=== PATIENT | male | born 1995 | race Caucasian/White ===

== ENCOUNTER 2021-04-01 02:27 | Day surgery (SDC) | payer OTHER, SELFPAY ==
[2021-03-18 13:50] VITALS: BMI 31.6
[2021-04-01 12:03] VITALS: BP 159/93; PULSE 117; RESP 18; TEMP 36.7; O2SAT 100
[2021-04-01 12:20] VITALS: BP 149/87; PULSE 118; RESP 18; TEMP 36.6; O2SAT 99
--- NOTE | 2021-04-01 12:20 | PM.HPGS ---
History of Present Illness History of Present Illness Consent: Risks, benefits, and alternatives have been discussed and questions answered. Patient agrees to proceed with procedure. Chief complaint: internal hemorrhoids Narrative: Jonh Vidal is a 25 year old male here to get IRC because hemorrhoids Review of Systems Constitutional: Constitutional: Denies headache(s) and Denies weakness Eyes: Eyes: Denies blurry vision ENT: Reports Normal hearing present, Denies headache(s) and Denies neck pain Cardiovascular: Cardiovascular: Denies chest pain and Denies dyspnea Respiratory: Respiratory: Denies dyspnea Gastrointestinal: Gastrointestinal: Reports no additional gastrointestinal complaints Genitourinary: Genitourinary: Denies dysuria Musculoskeletal: Musculoskeletal: Denies neck pain Integumentary/Breasts: Skin/Breast: Denies dry skin Neurologic: Reports Normal hearing present, Denies headache(s) and Denies weakness Psychiatric: Psychiatric: Denies anxiety Endocrine: Endocrine: Denies change in body appearance Hematologic/Lymphatic: Hematologic/Lymphatic: Denies easy bleeding Allergic/Immunologic: Allergic/Immunologic: Denies urticaria PMFSH Past Medical History Medical History (Updated 02/21/21 @ 13:41 by Asaf Richey MD) ADD (attention deficit disorder) Generalized anxiety disorder Nicotine dependence Rectal bleeding Syphilis in male Social History Social History (Updated 02/21/21 @ 13:21 by Sierra Martines CMA) Smoking status: Former smoker Tobacco type: e-cigarettes/vaping Alcohol intake: current Drinks per week: 2 Substance use: never Living arrangements: with family Spiritual care concerns: No Meds Home Medications and Allergies Home Medications Medication Instructions Recorded Confirmed Type bupropion HCl 150 mg 24 hr tablet, 150 mg PO QAM #90 tablet 01/24/21 03/18/21 Rx extended release lisdexamfetamine 60 mg capsule 60 mg PO DAILY #30 cap 03/27/21 Rx Allergies Allergy/AdvReac Type Severity Reaction Status Date / Time amoxicillin [Amoxil] Allergy Unknown hives Verified 04/01/21 12:02 animal dander Allergy Unknown unkown Verified 04/01/21 12:02 grass pollen Allergy Unknown unkown Verified 04/01/21 12:02 house dust mite Allergy Unknown unkown Verified 04/01/21 12:02 mold Allergy Unknown unkown Verified 04/01/21 12:02 Penicillins Allergy Unknown Unknown Verified 04/01/21 12:02 Vital Signs Vital Signs - 24 hr 04/01/21 12:03 Temperature 98.1 F Pulse Rate 117 H Respiratory Rate 18 Blood Pressure 159/93 H Pulse Oximetry 100 Exam Const: General: comfortable and no acute distress HENMT: General nose exam: Normal nares present Eyes: General: appearance normal, both eyes and all related structures Neck: Neck: no JVD Resp: Auscultation: clear to auscultation bilaterally Cardio: Rate: regular rate Rhythm: regular rhythm GI: Inspection: non-distended GI Palp: Yes Soft to palpation Skin: General skin exam: normal color Neuro: General: gait normal Speech: normal speech Extrem: General: normal to inspection Psych: Mental Status: mental status grossly normal Assessment and Plan Assessment and plan (1) Internal hemorrhoids: Code(s): K64.8 - Other hemorrhoids Status: Acute Assessment and Plan: IRC treatment (2) Rectal bleeding: Code(s): K62.5 - Hemorrhage of anus and rectum Status: Acute
--- NOTE | 2021-04-01 12:21 | W.PM.PROC2 ---
Procedure Note - Detailed Date of Procedure 04/01/21 Pre-op Diagnosis internal hemorrhoids Post-op Diagnosis same Procedure Performed IRC (infrared coagulation) Surgeon Asaf Richey MD Anesthesia none Findings grade II internal hemorrhoid Description of Procedure I performed rectal exam, no fissure, no lesions. Then I introduced anoscopy and found grade II internal hemorrhoid at 6 o'clock, then used IRC probe x5 1.5 seconds each time, no complications Complications No immediate complications Condition stable
== END 2021-04-01 12:26 | disposition home or self-care (01) ==
PROVIDERS: PCP Family Medicine; Visit Provider Internal Medicine Gastroenterology
PROC: (CPT 46930; principal; 2021-04-01 12:00)
DX: K64.1 Second degree hemorrhoids (principal); F98.8 Other specified behavioral and emotional disorders with onset usually occurring in childhood and adolescence; F41.1 Generalized anxiety disorder; F17.290 Nicotine dependence, other tobacco product, uncomplicated; K62.5 Hemorrhage of anus and rectum
CPT/HCPCS: 46930

== ENCOUNTER 2021-07-01 00:30 | Day surgery (SDC) | payer OTHER, SELFPAY ==
[2021-06-19 15:56] VITALS: BMI 33.8
[2021-07-01 11:57] VITALS: BP 139/83; PULSE 94; RESP 16; TEMP 36; O2SAT 98; BMI 32.9
--- NOTE | 2021-07-01 12:00 | P.PNAN_ITS ---
Anes - Initial Pre Proc Eval Procedure: Operation Date: 07/01/21 13:30 Proposed Procedures p Colonoscopy - Pro Brock MD Date/Time: 07/01/21 12:00 Surgeon: Pro Brock MD Pre Op Diagnosis: Rectal Bleed Patient Data Age: 25 Gender: M Height: 1.78 m Weight: 104.1 kg Last Vital Signs Temp 36.0 C L 07/01/21 11:57 Pulse 94 07/01/21 11:57 Resp 16 07/01/21 11:57 BP 139/83 07/01/21 11:57 Pulse Ox 98 07/01/21 11:57 Allergies Allergy/AdvReac Type Severity Reaction Status Date / Time amoxicillin [Amoxil] Allergy Unknown hives Verified 07/01/21 11:55 animal dander Allergy Unknown unkown Verified 07/01/21 11:55 grass pollen Allergy Unknown unkown Verified 07/01/21 11:55 house dust mite Allergy Unknown unkown Verified 07/01/21 11:55 mold Allergy Unknown unkown Verified 07/01/21 11:55 Penicillins Allergy Unknown Unknown Verified 07/01/21 11:55 Home Medications Medication Instructions Recorded Confirmed Type bupropion HCl 150 mg 24 hr tablet, 150 mg PO QAM #90 tablet 04/24/21 06/27/21 Rx extended release escitalopram oxalate 10 mg tablet 10 mg PO DAILY 06/27/21 06/27/21 History lisdexamfetamine 60 mg capsule 60 mg PO QAM #30 cap 06/27/21 07/01/21 Rx Patient hx anesthesia problems: none Family hx anesthesia problems: none Results Review: All pre-operative results and documents have been reviewed as part of the pre-operative evaluation. [facility] Past Medical History Medical History ADD (attention deficit disorder) Generalized anxiety disorder Nicotine dependence Rectal bleeding Syphilis in male Social History Social History Smoking packs per day: 0.5 Smoking cigarettes per day: 10.0 Years smoked: 4 Smoking pack-years: 2.00 Tobacco type: e-cigarettes/vaping Additional smoking assessment comments: still uses tobacoless dip pouches for the nicotine Alcohol intake: current Drinks per week: 2 Alcohol use details: rare occasional use Substance use: never Substance use type: does not use Spiritual care concerns: No Anes - Eval Final PreProcedure Day of Procedure 07/01/21 12:00 Patient weight: obese Heart: regular rate and rhythm Lungs: clear to auscultation Airway: Mallampati scale class 1 Neurological: alert and oriented Last oral intake: >/= 8 hours ASA classification: III Emergent: no Anesthetic plan: proceed Anesthesia type and monitoring: general GIVS and standard monitoring Results Review: All pre-operative results and documents have been reviewed as part of the pre-operative evaluation. Informed Consent: The patient's anesthetic plan and its attendant risks and benefits were discussed with the patient/family/POA. Questions were solicited and answers provided to the satisfaction of the patient/family/POA.
--- NOTE | 2021-07-01 12:05 | WPDGICN ---
Assessment and Plan Assessment and plan (1) Rectal bleeding: Code(s): K62.5 - Hemorrhage of anus and rectum Status: Acute Assessment and Plan: Patient with rectal bleeding associated with rectal trauma. Will perform colonoscopy to assess more thoroughly. High-fiber diet. Minimizing trauma is strongly encouraged. (2) Proctalgia: Code(s): K62.89 - Other specified diseases of anus and rectum Status: Acute Assessment and Plan: Patient reports pain rectal pain with rectal intercourse. Plan to perform assess more thoroughly with colonoscopy to exclude organic disease. (3) Internal hemorrhoids: Code(s): K64.8 - Other hemorrhoids Status: Acute Assessment and Plan: Patient is reported to have had internal hemorrhoids on previous exam. This will be assessed at time of colonoscopy. High-fiber diet advised. GI Consult Note Consult date/time: 07/01/21 12:05 HPI: Jonh Vidal is a 25 year old male Presents for colonoscopy. Patient's last colonoscopy 5 years ago was perm formed by Dr. Hodge. Patient has recently had some rectal bleeding. He noticed this this with anal sex in with sex toys. More recently is be spin started on fiber supplements and this is minimized. He continues to have pain but only with sexual intercourse. Patient states this does not occur with bowel movements. Or with regular activity. The patient has undergone IR see under the direction of Dr. Paz. He presents today for colonoscopy to further assess his pain and bleeding. Review of Systems Review of Systems: All systems reviewed & are unremarkable except as noted in HPI and below PMFSH Past Medical History Medical History ADD (attention deficit disorder) Generalized anxiety disorder Nicotine dependence Rectal bleeding Syphilis in male Social History Social History Smoking packs per day: 0.5 Smoking cigarettes per day: 10.0 Years smoked: 4 Smoking pack-years: 2.00 Tobacco type: e-cigarettes/vaping Additional smoking assessment comments: still uses tobacoless dip pouches for the nicotine Alcohol intake: current Drinks per week: 2 Alcohol use details: rare occasional use Substance use: never Substance use type: does not use Spiritual care concerns: No Meds Home Medications and Allergies Home Medications Medication Instructions Recorded Confirmed Type bupropion HCl 150 mg 24 hr tablet, 150 mg PO QAM #90 tablet 04/24/21 06/27/21 Rx extended release escitalopram oxalate 10 mg tablet 10 mg PO DAILY 06/27/21 06/27/21 History lisdexamfetamine 60 mg capsule 60 mg PO QAM #30 cap 06/27/21 07/01/21 Rx Allergies Allergy/AdvReac Type Severity Reaction Status Date / Time amoxicillin [Amoxil] Allergy Unknown hives Verified 07/01/21 11:55 animal dander Allergy Unknown unkown Verified 07/01/21 11:55 grass pollen Allergy Unknown unkown Verified 07/01/21 11:55 house dust mite Allergy Unknown unkown Verified 07/01/21 11:55 mold Allergy Unknown unkown Verified 07/01/21 11:55 Penicillins Allergy Unknown Unknown Verified 07/01/21 11:55 Vital Signs Vital Signs - 24 hr 07/01/21 11:57 Temperature 96.8 F L Pulse Rate 94 Respiratory Rate 16 Blood Pressure 139/83 Pulse Oximetry 98 Exam Narrative: Physical exam reveals patient be alert. Vital signs stable. HEENT exam unremarkable. Patient anicteric. Lungs are clear. Heart without murmur. Abdomen bowel sounds present soft nontender with no hepatosplenomegaly. . Digital external rectal exam normal.
[2021-07-01] MEDS: LACTATED RINGERS 1,000 ML 150 ML IV CONT (12:09)
[2021-07-01 12:29] VITALS: BP 110/66; PULSE 76; RESP 18; O2SAT 100
[2021-07-01 12:39] VITALS: BP 106/70; PULSE 67; RESP 19; O2SAT 100
[2021-07-01 12:49] VITALS: BP 114/77; PULSE 64; RESP 21; O2SAT 100
== END 2021-07-01 13:21 | disposition home or self-care (01) ==
PROVIDERS: PCP Family Medicine; Visit Provider Internal Medicine Gastroenterology
PROC: 0DJD8ZZ Inspection of Lower Intestinal Tract, Via Natural or Artificial Opening Endoscopic (ICD-10-PCS; CPT 45378; principal; 2021-07-01 13:30)
DX: K62.5 Hemorrhage of anus and rectum (principal); K62.89 Other specified diseases of anus and rectum; K64.8 Other hemorrhoids; F98.8 Other specified behavioral and emotional disorders with onset usually occurring in childhood and adolescence; F41.1 Generalized anxiety disorder; F17.290 Nicotine dependence, other tobacco product, uncomplicated; F17.220 Nicotine dependence, chewing tobacco, uncomplicated
CPT/HCPCS: 45378; J2001; J2704; J7120